=== PATIENT | male | born 1945 | race Caucasian/White ===

== ENCOUNTER 2016-11-19 20:16 | Emergency (ER) | payer OTHER ==
[~2016-11-19] VITALS: Ht 167.6 cm; Wt 104.0 kg
[~2016-11-19 20:16] MED LIST: AMLO-147 PO; ASPI-650; BACL20TA PO; BENA40TA41 PO; CLON0.2T12 PO; COL250 PO; DICL75 PO; DOCU-144 PO; FLUO20CA38 PO; GLIM1TAB PO; HYDR-3498 PO; HYDR25TA6 PO; IBUP-1542 PO; POTA10TA97 PO
[2016-11-19 20:22] VITALS: Ht 167.6 cm; Wt 104.0 kg
[2016-11-19] MEDS ORDERED: SOD CHLORIDE 0.9% 1,000 ML IV STA ×2 (22:11→22:13)
[2016-11-19 22:40] LABS: ADD SCAN DIFF NO; BASOPHIL # 0.1 10^3/ul (0.0-0.1); BASOPHILS % 0.4 % (0.0-2.0); EOSINOPHILS % 0.1 % (0.0-7.0); HEMATOCRIT 43.8 % (42.0-52.0); HEMOGLOBIN 15.8 g/dl (14.0-18.0); LYMPHOCYTES # 1.9 10^3/ul (0.8-2.9); LYMPHOCYTES % 10.3 % (15.0-51.0); MEAN CORPUSCULAR HGB CONC 36.1 g/dl (32.0-37.0); MEAN CORPUSCULAR VOLUME 85.9 fl (82.0-101.0); MEAN PLATELET VOLUME 9.4 fl (7.4-10.4); MONOCYTES % 5.3 % (0.0-11.0); NEUTROPHIL # 15.5 10^3/ul (1.6-7.5); NEUTROPHILS % 83.1 % (39.0-77.0); PLATELET COUNT 185 10^3/UL (140-415); RED CELL DISTRIBUTION WIDTH 11.7 % (11.5-14.5); WHITE BLOOD COUNT 18.6 10^3/ul (4.8-10.8)
[2016-11-19 23:00] LABS: ADD UMIC YES; UR BILIRUBIN (Dip) NEGATIVE (NEGATIVE); UR BLOOD (Dip) 2+ (NEGATIVE); UR CLARITY CLEAR (CLEAR); UR COLOR YELLOW (YELLOW); UR KETONES (Dip) TRACE (NEGATIVE); UR LEUKOCYTE ESTERASE (Dip) NEGATIVE (NEGATIVE); UR NITRITE (Dip) NEGATIVE (NEGATIVE); UR TOTAL PROTEIN (Dip) 2+ (NEGATIVE); UR UROBILINOGEN (Dip) 1.0 E.U./dL (0.1-1.0)
[2016-11-19 23:01] LABS: ALBUMIN/GLOBULIN RATIO 1.61; BILIRUBIN,INDIRECT 1.9 mg/dl (0-1.1); BILIRUBIN,TOTAL 1.9 mg/dl (0.2-1.3); CALCIUM 9.3 mg/dl (8.4-10.2); CREATININE 0.64 mg/dl (0.61-1.24); POTASSIUM 3.8 mmol/L (3.5-5.1); TOTAL PROTEIN 8.1 g/dl (6.1-8.1)
[2016-11-19] MEDS ORDERED: ACETAMINOPHEN 500 MG TAB PO STA (23:12)
[2016-11-19 23:17] LABS: URINE RBCS 0-2 /HPF (0)
[2016-11-20] MEDS ORDERED: CEFTRIAXONE 1 GM/50 ML (PMX) 50 ML IVPB ONE
[2016-11-20 00:25] VITALS: TEMP 98.6
[2016-11-20 00:43] VITALS: BP 177/84; PULSE 95; RESP 20
--- NOTE | 2016-11-20 00:49 | RADRPT ---
PROCEDURE: CT Abdomen and pelvis without contrast. CLINICAL INDICATION: Abdominal pain. TECHNIQUE: CT scan of the abdomen and pelvis was performed on a multi-detector high-resolution CT scanner. Contiguous axial images were obtained from the lung bases to the ischial tuberosities wit hout intravenous contrast. Coronal and sagittal reformatted images were also obtained. Images were reviewed on the PACS workstation. One or more of the following dose reduction techniques were used: - Automated exposure control. - Adjustment of the mA and/or kV according to patient size. - Use of iterative reconstruction technique. Exam CTD/vol = 20.80 mGy. Total exam DLP = 1492.13 mGy-cm. COMPARISON: None. FINDINGS: Evaluation of the lung bases demonstrates mild bibasilar atelectasis. Abdomen: The liver is normal in size. There is no focal mass or dilatation of the biliary tree. T he gallbladder is not distended. The spleen, pancreas and bilateral adrenal glands are within sadie l limits. Bilateral kidneys are normal in size with a cyst within the upper pole of the right kidne y. There is no radiopaque renal or ureteral calculus identified. There is bilateral mild perinephr ic stranding. There is no hydronephrosis or hydroureter. There is no retroperitoneal adenopathy. The abdominal aorta is of normal caliber with scattered atherosclerotic calcifications. There is no abnormal bowel wall thickening or distension. There is no bowel obstruction or free air . A normal appendix is identified. There is colonic diverticulosis without evidence of diverticuli tis. There is no ascites. Pelvis: The bladder is unremarkable. The prostate is moderately enlarged. There is a small right inguinal hernia containing fat. There is no significant pelvic adenopathy or free fluid. Evaluation of the osseous structures demonstrates no suspicious lytic or blastic lesion. There are m ultiple old right-sided rib fractures. IMPRESSION: Colonic diverticulosis without evidence of diverticulitis. Mild bibasilar atelectasis. Right renal cyst. Vascular calcifications reflective of atherosclerosis. Moderately enlarged prostate. Small right inguinal hernia containing fat. Otherwise no acute abnormality identified within the abdomen and pelvis. .Sj Duarte MD, MD Date Time Electronically viewed and signed by .Sj Duarte MD, MD on 11/20/2016 00:49 .T/
--- NOTE | 2016-11-20 00:55 | ERD ---
ER Documentation Chief Complaint Date/Time DATE: 11/20/16 TIME: 00:53 Chief Complaint FEVER WITH DYSURIA AND FREQUENCY SINCE LAST NIGHT HPI This is a 71-year-old male who presents to the emergency room for evaluation of urinary frequency, urgency and dysuria for the past 24 hours. The patient states that he also has noted fever. He denies any nausea vomiting and came to the emergency room for valuation. He states his symptoms are worse with urination. He denies any blood in the urine and came to the ER for evaluation per ROS All systems reviewed and are negative except as per history of present illness. Medications Home Meds Active Scripts Ibuprofen* (Motrin*) 600 Mg Tab, 600 MG PO Q6, #20 TAB Prov:LETTY SANCHEZ MD 02/16/15 Docusate Sodium* (Colace*) 100 Mg Capsule, 100 MG PO BID, #30 Prov:LETTY SANCHEZ MD 02/16/15 Hydrocodone Bit-Acetaminophen* ([place]*) 5-325 Mg Tab, 1 TAB PO Q6 Y for PAIN, # 20 TAB Prov:LETTY SANCHEZ MD 02/16/15 Reported Medications Aspirin (Aspirin) 81 Mg Tablet, DAILY 08/04/11 Docusate Sodium (Colace) 250 Mg Cap, 250 MG PO BID 01/22/11 Diclofenac Sodium* (Voltaren*) 75 Mg Tablet.dr, 75 MG PO BID 01/22/11 Fluoxetine Hcl* (Prozac*) 20 Mg Capsule, 20 MG PO DAILY 01/22/11 Benazepril Hcl* (Benazepril Hcl*) 40 Mg Tablet, 40 MG PO DAILY 01/22/11 Baclofen* (Baclofen*) 20 Mg Tablet, 20 MG PO TID 01/22/11 Clonidine Hcl* (Catapres*) 0.2 Mg Tablet, 0.2 MG PO Q8 01/22/11 Hydrochlorothiazide (Hydrochlorothiazide) 25 Mg Tablet, 25 MG PO DAILY 01/22/11 Potassium Chloride (Klor-Con) 10 Meq Tablet.sa, 10 MEQ PO DAILY 01/22/11 Amlodipine Besylate* (Amlodipine Besylate*) 10 Mg Tablet, 10 MG PO DAILY 01/22/11 Glimepiride* (Amaryl*) 1 Mg Tablet, 1 MG PO DAILY 01/22/11 Allergies Allergies: Coded Allergies: No Known Allergies (Verified Allergy, Unknown, 11/19/16) PMhx/Soc History of Surgery: Yes (INGUINAL HERNIA REPAIR X 2) Anesthesia Reaction: No Hx Neurological Disorder: No Hx Respiratory Disorders: No Hx Cardiac Disorders: No (HTN) Hx Psychiatric Problems: No Hx Miscellaneous Medical Probl: Yes (DM) Hx Alcohol Use: No (occasional drinking) Hx Substance Use: No Hx Tobacco Use: Yes (occasionally) Smoking Status: Current some day smoker Physical Exam Vitals Vital Signs Date Time Temp Pulse Resp B/P Pulse Ox O2 Delivery O2 Flow Rate FiO2 11/20/16 00:43 95 20 177/84 92 11/20/16 00:25 98.6 11/19/16 20:22 101.4 92 18 169/91 94 Physical Exam INITIAL VITAL SIGNS: Reviewed by me GENERAL: The patient is well developed and appropriate for usual state of health in no apparent distress HEENT: Pupils equal, round, and reactive to light. EOMI. There is no scleral icterus. NECK: C-spine is soft and supple, there is no meningismus. There is no cervical lymphadenopathy. LUNGS: Clear to auscultation bilaterally. There are no rales, wheezes or rhonchi. HEART: Tachycardic, no murmurs, clicks, rubs or gallops. ABDOMEN: Soft, non-tender, non-distended. There are bowel sounds in all four quadrants. No rebound or guarding. EXTREMITIES: There is no peripheral cyanosis or edema. No focal swelling or erythema. NEUROLOGICAL: The patient moves all four extremities with 5/5 strength. Cranial nerves II - XII are intact. Normal gait. Alert and oriented SKIN: There is no apparent rash or petechiae. HEME/LYMPHATIC: There is no evidence of excessive bruising or lymphedema. PSYCHIATRIC: The patient does not appear anxious or depressed. Result Diagram: 11/19/16223211/19/162232 Results 24 hrs Laboratory Tests Test 11/19/16 22:11 11/19/16 22:33 Urine Color YELLOW Urine Clarity CLEAR Urine pH 8.0 Urine Specific Gervais 1.015 Urine Ketones TRACE Urine Nitrite NEGATIVE Urine Bilirubin NEGATIVE Urine Urobilinogen 1.0 E.U./dL Urine Leukocyte Esterase NEGATIVE Urine Microscopic RBC 0-2/HPF Urine Microscopic WBC 2-5/HPF Urine Hemoglobin 2+ Urine Glucose 0.5%% Urine Total Protein 2+ White Blood Count 18.610^3/ul Red Blood Count 5.1010^6/ul Hemoglobin 15.8g/dl Hematocrit 43.8% Mean Corpuscular Volume 85.9fl Mean Corpuscular Hemoglobin 31.0pg Mean Corpuscular Hemoglobin Concent 36.1g/dl Red Cell Distribution Width 11.7% Platelet Count 06419^3/UL Mean Platelet Volume 9.4fl Neutrophils % 83.1% Lymphocytes % 10.3% Monocytes % 5.3% Eosinophils % 0.1% Basophils % 0.4% Nucleated Red Blood Cells % 0.0/100WBC Neutrophils # 15.510^3/ul Lymphocytes # 1.910^3/ul Monocytes # 1.010^3/ul Eosinophils # 0.010^3/ul Basophils # 0.110^3/ul Nucleated Red Blood Cells # 0.010^3/ul Sodium Level 133mmol/L Potassium Level 3.8mmol/L Chloride Level 90mmol/L Carbon Dioxide Level 30mmol/L Anion Gap 17 Blood Urea Nitrogen 12mg/dl Creatinine 0.64mg/dl Glucose Level 236mg/dl Calcium Level 9.3mg/dl Total Bilirubin 1.9mg/dl Direct Bilirubin 0.00mg/dl Indirect Bilirubin 1.9mg/dl Aspartate Amino Transf (AST/SGOT) 23IU/L Alanine Aminotransferase (ALT/SGPT) 47IU/L Alkaline Phosphatase 87IU/L Total Protein 8.1g/dl Albumin 5.0g/dl Globulin 3.10g/dl Albumin/Globulin Ratio 1.61 Lipase 46U/L Current Medications Medications (Trade) Dose Ordered Sig/Mohinder Route PRN Reason Start Time Stop Time Status Last Admin Dose Admin Sodium Chloride 1,000 ml @ 1,000 mls/hr Q1H STAT IV 11/19/16 22:11 11/19/16 23:07 DC Sodium Chloride (NS) 1,000 ml @ 1,000 mls/hr Q1H STAT IV 11/19/16 22:13 11/19/16 23:13 DC 11/19/16 22:36 Acetaminophen 1000 mg 1,000 mg ONCE STAT PO 11/19/16 23:12 11/19/16 23:13 DC Ceftriaxone Sodium (Rocephin) 50 ml @ 100 mls/hr ONCE ONCE IVPB 11/20/16 00:00 11/20/16 00:29 DC 11/20/16 00:20 Procedures/MDM CT abdomen pelvis without: Colonic diverticulosis without evidence of diverticulitis. Mild bibasilar atelectasis. Right renal cyst. Vascular calcifications reflective of atherosclerosis. Moderately enlarged prostate. Small right inguinal hernia containing fat. Otherwise no acute abnormality identified within the abdomen and pelvis. This 71-year-old male presents to the ER for evaluation of painful urination. The patient was febrile tachycardic when I evaluated him. Lab work was obtained which does show a leukocytosis. Urinalysis does not reveal significant urinary tract infection so I did obtain a CT of the abdomen and pelvis which does not reveal any signs of infection in the intraperitoneal area. The patient was given 1 g Rocephin in the emergency room. He was also given Tylenol. Upon reevaluation this patient is afebrile, not tachycardic and is well-appearing. He is able to tolerate p.o. at this time and will be discharged home with a prescription for ciprofloxacin 500 mg take over the course of the next 2 weeks. Urine culture was sent as well. Smoking Cessation Therapy: Pt. was lectured for greater than 3 minutes on the health risks of continued smoking and the benefits of cessation. Departure Diagnosis: Primary Impression: Acute cystitis Additional Impressions: Dysuria Tobacco abuse Condition: Stable LIO COLÓN DO Nov 20, 2016 00:55
[2016-11-20] MEDS ORDERED: CIPR500T4 PO (00:56)
== END 2016-11-20 01:16 | disposition home or self-care (01) ==
LOC: FTE 20:16
DX: N30.00 Acute cystitis without hematuria (principal); R30.0 Dysuria; F17.210 Nicotine dependence, cigarettes, uncomplicated; I10 Essential (primary) hypertension; E11.9 Type 2 diabetes mellitus without complications; Z79.84 Long term (current) use of oral hypoglycemic drugs; Z79.82 Long term (current) use of aspirin
CPT/HCPCS: 36415; 74176; 80053; 81001; 83690; 85025; 87086; 96374; 99285; J0696; J7030

== ENCOUNTER 2018-10-11 16:59 | Emergency (ER) | payer OTHER ==
[~2018-10-11] VITALS: Ht 162.6 cm; Wt 97.7 kg
[~2018-10-11 16:59] MED LIST changes: -BENA40TA41 PO; +BENA40TA56 PO; +CIPR500T4 PO; +POTA10TA7 PO; -POTA10TA97 PO
[2018-10-11 17:44] VITALS: BP 160/74; PULSE 65; RESP 18; Ht 162.6 cm; Wt 97.7 kg
--- NOTE | 2018-10-11 19:11 | ERD ---
ER Documentation Chief Complaint Chief Complaint Painful blistery rash on L torso X 1 wk HPI 73-year-old male, previously healthy, presented to the emergency department, complaining of painful blister rash on the left torso for 1 week. ROS All systems reviewed and are negative except as per history of present illness. Medications Home Meds Active Scripts Ciprofloxacin Hcl* (Ciprofloxacin Hcl*) 500 Mg Tablet, 500 MG PO BID for 14 Days, TAB Prov:LIO COLÓN DO 11/20/16 Ibuprofen* (Motrin*) 600 Mg Tab, 600 MG PO Q6, #20 TAB Prov:LETTY SANCHEZ MD 02/16/15 Docusate Sodium* (Colace*) 100 Mg Capsule, 100 MG PO BID, #30 Prov:LETTY SANCHEZ MD 02/16/15 Hydrocodone Bit-Acetaminophen* ([place]*) 5-325 Mg Tab, 1 TAB PO Q6 PRN for PAIN, #20 TAB Prov:LETTY SANCHEZ MD 02/16/15 Reported Medications Aspirin (Aspirin) 81 Mg Tablet, DAILY 08/04/11 Docusate Sodium (Colace) 250 Mg Cap, 250 MG PO BID 01/22/11 Diclofenac Sodium* (Voltaren*) 75 Mg Tablet.dr, 75 MG PO BID 01/22/11 Fluoxetine Hcl* (Prozac*) 20 Mg Capsule, 20 MG PO DAILY 01/22/11 Benazepril Hcl* (Benazepril Hcl*) 40 Mg Tablet, 40 MG PO DAILY 01/22/11 Baclofen* (Baclofen*) 20 Mg Tablet, 20 MG PO TID 01/22/11 Clonidine Hcl* (Catapres*) 0.2 Mg Tablet, 0.2 MG PO Q8 01/22/11 Hydrochlorothiazide (Hydrochlorothiazide) 25 Mg Tablet, 25 MG PO DAILY 01/22/11 Potassium Chloride (Klor-Con) 10 Meq Tablet.sa, 10 MEQ PO DAILY 01/22/11 Amlodipine Besylate* (Amlodipine Besylate*) 10 Mg Tablet, 10 MG PO DAILY 01/22/11 Glimepiride* (Amaryl*) 1 Mg Tablet, 1 MG PO DAILY 01/22/11 Allergies Allergies: Coded Allergies: No Known Allergies (Verified Allergy, Unknown, 11/19/16) PMhx/Soc History of Surgery: Yes (INGUINAL HERNIA REPAIR X 2) Anesthesia Reaction: No Hx Neurological Disorder: No Hx Respiratory Disorders: No Hx Cardiac Disorders: No (HTN) Hx Psychiatric Problems: No Hx Miscellaneous Medical Probl: Yes (DM) Hx Alcohol Use: No (occasional drinking) Hx Substance Use: No Hx Tobacco Use: Yes (occasionally) Smoking Status: Former smoker Physical Exam Vitals Vital Signs Date Temp Pulse Resp B/P (MAP) Pulse Ox O2 O2 Flow FiO2 Time Delivery Rate 10/11/18 98.2 65 18 160/74 95 17:44 (102) Physical Exam Const: No acute distress Head: Atraumatic Eyes: Normal Conjunctiva ENT: Normal External Ears, Nose and Mouth. Neck: Full range of motion. No meningismus. Resp: Clear to auscultation bilaterally Cardio: Regular rate and rhythm, no murmurs Abd: Soft, non tender, non distended. Normal bowel sounds Skin: No petechiae or rashes Back: No midline or flank tenderness Ext: No cyanosis, or edema Neur: Awake and alert Psych: Normal Mood and Affect Procedures/MDM Differential diagnosis include but not limited to: Contact dermatitis, HSV infection, cellulitis, insect bite, scabies. impetigo. Physical examination and clinical presentation consistent most likely with shingles. During the ED course the patient remained stable, no new complaints. Results and clinical impression discussed with patient who agrees with management. The patient is stable to be treated outpatient and will be discharged home with a Rx for acyclovir, some side effects of prescribed medications (headache, rash, nausea, vomiting, diarrhea, drowsiness, habituation, bleeding, hypertension, interactions with other medications) were reviewed. The patient was instructed to follow up with the primary care provider in the next 48h. If symptoms persist, worsen or new symptoms develop, then patient should return to the ED immediately. Instructions explained and given directly by me to the patient with acknowledgment and demonstrated understanding. Disclaimer: Inadvertent spelling and grammatical errors are likely due to EHR/dictation software use and do not reflect on the overall quality of patient care. Also, please note that the electronic time recorded on this note does not necessarily reflect the actual time of the patient encounter. Departure Diagnosis: Primary Impression: Shingles Condition: Stable Additional Instructions: Muas sarwat por escoger [facility] para de la vega servicio. Esperamos que en de la vega visita a la lamar de emergencia de la vega problema medico haya sido solucionado y que se sienta mucho mejor. Para estar seguros que de la vega mejoria sigue en proceso, le pedimos el favor de hacer zainab maria m de seguimiento medico con de la vega doctor primario en los proximos 2-4 morgan. Lleve con usted estos documentos y las medicinas recetadas. Si francisco sintomas empeoran, NO SE ESPERE, por favor regrese a lamar de emergencia INMEDIATAMENTE. En lyla que usted no tenga un mdico de atencin primaria: Llame al mdico o clnica comunitaria de referencia que aparece abajo buddy las horas de consultorio para hacer zainab maria m para que le vean. CLINICAS: [facility] [phone] [facility] [phone] [facility] [phone] [facility] [phone] [facility] [phone] [id number] [facility] [phone] FREDY GERBER MD October 11, 2018 19:11
[2018-10-11] MEDS ORDERED: HYDR-4011 PO (19:18)
[2018-10-11] MEDS ORDERED: ACYC800T5 PO (19:18)
== END 2018-10-11 19:30 | disposition home or self-care (01) ==
LOC: FTE 16:59
DX: B02.9 Zoster without complications (principal); E11.9 Type 2 diabetes mellitus without complications; I10 Essential (primary) hypertension; Z79.82 Long term (current) use of aspirin; Z87.891 Personal history of nicotine dependence
CPT/HCPCS: 99282